=== PATIENT | male | born 1980 | race Caucasian/White ===

== ENCOUNTER → 2019-03-08 | Outpatient (CLI) | payer OTHER ==
[2019-03-08 09:17] LABS: HCT 46.9 % (39.0-53.0); HGB 15.7 gm/dL (13.0-17.5); MCH 31.1 pg (25.0-35.0); MCHC 33.4 g/dL (31.0-37.0); MCV 92.8 fL (80.0-100.0); Platelet Count 239 k/uL (150-450); RBC 5.05 m/uL (4.30-5.90); RDW 11.6 % (11.5-15.5); WBC 5.6 k/uL (3.8-10.6)
== END | disposition home or self-care (01) ==
LOC: LABPAT 08:49
PROVIDERS: ATTEND Anesthesiology
DX: Z01.812 Encounter for preprocedural laboratory examination (principal); K40.30 Unilateral inguinal hernia, with obstruction, without gangrene, not specified as recurrent
CPT/HCPCS: 36415; 85027

== ENCOUNTER 2019-03-09 05:48 | Day surgery (SDC) | payer OTHER ==
[2019-03-05 08:42] VITALS: BMI 25.0
[~2019-03-09 05:48] MED LIST: DEXAMETHASONE SOD PHOSPHATE 10 MG/ML 1 ML VIAL IV ONE; HEPARIN SODIUM,PORCINE 5,000 UNIT/ML 1 ML VIAL SQ ONE; LIDOCAINE 1% 20 ML VIAL (10MG/ML) FOR IV START INTRADERMA PRN; MIDAZOLAM 2 MG/2 ML VIAL IV PRN; ONDANSETRON 4 MG/2 ML VIAL IVP ONE; SCOPOLAMINE 1.5MG/72HR PATCH TRANSDERM ONE
[2019-03-09] MEDS: LACTATED RINGERS 1,000 ML IV SCH ×2 (06:36→07:48)
[2019-03-09] MEDS ORDERED: MIDAZOLAM 2 MG/2 ML VIAL IV ONE (07:06)
[2019-03-09] MEDS ORDERED: SUCCINYLCHOLINE CHLORIDE 100 MG/5 ML SYR IV ONE (07:45)
[2019-03-09] MEDS ORDERED: fentaNYL (PF) 50 MCG/ML 2 ML AMP ONE (07:45)
[2019-03-09] MEDS ORDERED: KETOROLAC 30 MG/ML 1 ML VIAL ONE (07:45)
[2019-03-09] MEDS ORDERED: DEXAMETHASONE SOD PHOSPHATE 4 MG/ML 1 ML VIAL ONE (07:45)
[2019-03-09] MEDS ORDERED: ROPIVACAINE 5 MG/ML 30 ML VIAL ONE (07:45)
[2019-03-09] MEDS ORDERED: NEOSTIGMINE 1 MG/ML 10 ML VIAL ONE (07:45)
[2019-03-09] MEDS ORDERED: ROCURONIUM BROMIDE 10 MG/ML 10 ML VIAL IV ONE (07:45)
[2019-03-09] MEDS ORDERED: LIDOCAINE 1% INJ 10MG/ML (20 ML MDV) ONE (07:45)
[2019-03-09] MEDS ORDERED: KETAMINE 10 MG/ML 20 ML VIAL ONE (07:45)
[2019-03-09] MEDS ORDERED: GLYCOPYRROLATE 0.2 MG/ML 2 ML VIAL ONE (07:45)
[2019-03-09] MEDS ORDERED: PROPOFOL 10 MG/ML 20 ML VIAL IV ONE (07:45)
--- NOTE | 2019-03-09 07:53 | P.GSHP ---
History of Present Illness H&P Date: 03/09/19 Chief Complaint: Right inguinal hernia The 30-year-old male who presents today for laparoscopic robotic Right we'll hernia. Patient has a complaint of pain in his right groin. Past Medical History Past Medical History: Skin Disorder Additional Past Medical History / Comment(s): PSORIATIC ARTHRITIS History of Any Multi-Drug Resistant Organisms: None Reported Past Surgical History: No Surgical Hx Reported Additional Past Surgical History / Comment(s): NO PRIOR SURGICAL HX Past Anesthesia/Blood Transfusion Reactions: No Reported Reaction Smoking Status: Never smoker - Past Family History Mother Family Medical History: No Reported History Medications and Allergies Home Medications Medication Instructions Recorded Confirmed Type Apremilast [Otezla] 30 mg PO BID 03/05/19 03/09/19 History Allergies Allergy/AdvReac Type Severity Reaction Status Date / Time No Known Allergies Allergy Verified 03/09/19 06:17 Surgical - Exam Vital Signs Temp Pulse Resp BP Pulse Ox 97.6 F 57 L 16 139/83 99 03/09/19 06:21 03/09/19 06:21 03/09/19 06:21 03/09/19 06:21 03/09/19 06:21 - General well developed, well nourished, no distress - Eyes PERRL - ENT normal pinna - Neck no masses - Respiratory normal expansion - Cardiovascular Rhythm: regular - Abdomen Abdomen: soft, non tender Assessment and Plan Assessment: Reading hernia. We'll perform laparoscopic robotic-assisted repair.
[2019-03-09] MEDS ORDERED: BUPIVACAINE (PF) 0.25% 30 ML VIAL SQ ONE ×2 (08:05→08:14)
--- NOTE | 2019-03-09 08:43 | P.OP ---
Date of Procedure: 03/09/19 Preoperative Diagnosis: Right inguinal hernia Postoperative Diagnosis: Right inguinal hernia Procedure(s) Performed: Laparoscopic robotic right inguinal hernia Anesthesia: TIMOTHY Surgeon: Reymundo Starkey Estimated Blood Loss (ml): 5 Pathology: none sent Condition: stable Disposition: PACU Description of Procedure: The patient was placed on the operating table in the supine position. The patient received general anesthesia. The patient's abdomen was prepped and draped in usual sterile fashion. The skin was anesthetized 1% local Xylocaine at the incision sites. Using an 11 blade a skin incision was made at the umbilicus. The fascia was grasped with a Cyndi and then the peritoneal cavity was entered with the Veress needle. Position of the Veress needle was confirmed with a positive drop test. After adequate insufflation a 5 mm trocar was placed into the peritoneal cavity. The Laparoscope was placed the peritoneal cavity. And a robotic 8 mm trocar was placed in the right lateral position and then another 8 mm robotic trochars placed in the left lateral position. The original 5 mm trocar was exchanged for a 12 mm trocar. The patient was placed in reverse Trendelenburg and then the patient was docked to the robot. Next the peritoneum over top of the hernia was incised and then using blunt and sharp dissection and electrocautery the hernia sac was dissected free from the floor of the inguinal canal. The hernia sac was completely reduced into the pe ritoneal cavity. And then using the Pro drop man mesh the hernia was repaired. The peritoneum was then sutured with 2-0V lock suture. The patient was then undocked the robot. The needle was withdrawn from the peritoneal cavity. The umbilical trocar site was closed with 0 Ethibond suture. The skin was closed interrupted 3-0 Monocryl suture. Dermabond dressing was applied. Patient was sent to recovery in stable condition.
[2019-03-09 09:06] VITALS: TEMP 98
[2019-03-09 09:09] VITALS: RESP 16
[2019-03-09] MEDS: HYDROmorphone 0.5 MG/0.5 ML SYRINGE IVP PRN ×4 (09:28→09:50)
[2019-03-09] MEDS ORDERED: HYDROcodone/APAP 5-325MG 1 EACH TAB PO ONE (10:27)
[2019-03-09 11:06] VITALS: BP 137/77; PULSE 67
--- NOTE | 2019-03-09 14:00 | P.ANPRN ---
Procedure Note - Anesthesia - Nerve Block Performed Right Transversus Abdominis Single Time Out Performed: Yes Date of Procedure: 03/09/19 Procedure Start Time: : Procedure Stop Time: :08 Location of Patient: PreOp Indication: Acute Post-Operative Pain, Requested by Surgeon Sedation Type: Sedate with meaningful contact maintained Preparation: Sterile Prep Position: Supine Needle Types: Pajunk Needle Gauge: 21 Ultrasound used to visualize needle placement: Yes Ultrasound used to observe medication spread: Yes Blood Aspirated: No Pain Paresthesia on Injection Noted: No Resistance on Injection: Normal Image Stored and Saved: Yes Events: Uneventful and Well Tolerated (ropi .5% 20cc plus dexamethasone 4mg)
== END 2019-03-09 12:28 | disposition home or self-care (01) ==
LOC: OR 05:48
PROVIDERS: ATTEND Surgery
DX: K40.90 Unilateral inguinal hernia, without obstruction or gangrene, not specified as recurrent (principal); L40.50 Arthropathic psoriasis, unspecified; Z79.899 Other long term (current) drug therapy
CPT/HCPCS: 49650; S2900; 64486; 64488